=== PATIENT | female | born 2000 | race Caucasian/White ===

== ENCOUNTER 2022-12-20 20:17 | Emergency (ER) | payer SELFPAY ==
[2022-12-20] MEDS ORDERED: Ketorolac Tromethamine 30 MG/ML VIAL ONE (21:10)
[2022-12-20] MEDS ORDERED: Metoclopramide HCl 10 MG/2 ML VIAL ONE (21:10)
== END 2022-12-20 21:43 | disposition home or self-care (01) ==
LOC: CSHERS 20:17
DX: R51.9 Headache, unspecified (principal)
CPT/HCPCS: 96365; 96375; J1885; J2765